=== PATIENT | female | born 2005 | race Caucasian/White ===

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

== ENCOUNTER → 2023-06-18 09:37 | Outpatient (POV) | payer OTHER, BC, SELFPAY | PROVIDERS: PCP Internal Medicine Adolescent Medicine; Visit Provider Dermatology | DX: Z00.00 Encounter for general adult medical examination without abnormal findings (principal) ==

== ENCOUNTER 2024-02-06 10:13 | Outpatient (CLI) | payer OTHER, BC, SELFPAY ==
[2024-02-06 12:12] LABS: Triiodothryronine (T3) Uptake 30 % (23.5-40.5)
[2024-02-06 12:26] LABS: Thyroid Stimulating Hormone 1.26 uIU/mL (0.465-4.68)
[2024-02-06 12:38] LABS: Free Thyroxine Index 2.5 ug/dL (5.93-13.13); T4 (Thyroxine) 8.3 ug/dl (5.53-11.0)
== END 2024-02-06 23:59 | disposition home or self-care (01) ==
LOC: LAB 10:16
PROVIDERS: PCP Nurse Practitioner Family; Visit Provider Nurse Practitioner Family
DX: R79.89 Other specified abnormal findings of blood chemistry (principal)
CPT/HCPCS: 36415; 84436; 84443; 84479

== ENCOUNTER 2025-04-15 15:16 | Outpatient (CLI) | payer OTHER, BC, SELFPAY ==
--- NOTE | 2025-04-15 | CA_ITS ---
APPROVED REPORT EXAM: Comprehensive 2D, Doppler, and color-flow Echocardiogram Assistant Import Manager: Kate Knight RT(R) Ht: 5 ft 8 in Wt: 145lbs BSA: 1.78 BP: 124/78 mmHg Indications: Bicuspid AV 2D Dimensions EF AP4 40.10 % GL Strain -11.6 % M-Mode Dimensions RVDd 2.66 cm (0.9-2.6) LA Diam 2.92 cm (1.9-4.0) LVDd 4.42 cm (3.5-5.7) LVDs 3.28 cm (3.5-5.7) IVSd 0.59 cm (0.6-1.1) PWd 0.46 cm (0.6-1.1) EF (Teich) 50.90% FS 25.80% EDV (Teich) 88.60 mL ESV (Teich) 43.50 mL LV Diastology E Decel Time 150 (160-240 msec) E/A Ratio 1.4 Aortic Valve CALUDIO Index 0.93 cm2/m2 AoV Peak Jase. 154.0 (50-130 cm/s) AO Peak GR. 9.50 mmHg AO Mean GR. 4.70 (<5 mmHg) AO VTI 29.4 (18-25 cm) CLAUDIO (VTI) 1.71 (2.5-4.5 cm2) Mitral Valve MV E Max Jase. 87.0 (40-130 cm/s) MV A Velocity 63.0 (40-130 cm/s) E/A Ratio 1.39 MV PHT 44.0 ms Left Ventricle The left ventricle is normal size. Left ventricular systolic function is normal. The left ventricular ejection fraction is within the normal range. There is normal left ventricular wall thickness. There is normal LV segmental wall motion. The left ventricular diastolic function is normal. LVEF is 55% Right Ventricle The right ventricle is normal size. The right ventricular systolic function is normal. Atria The left atrium size is normal. The right atrium size is normal. There is no color Doppler evidence of interatrial shunt. Aortic Valve The aortic valve is mildly thickened, possibly bicuspid AV is present. There is no hemodynamically significant aortic valvular stenosis. Trace aortic regurgitation is present. Mitral Valve The mitral valve is normal in structure. No evidence of mitral valve stenosis. Trace mitral regurgitation is present. Tricuspid Valve The tricuspid valve leaflets are thin and pliable. Trace tricuspid regurgitation. There is insufficient TR jet to estimate RVSP. Pulmonic Valve The pulmonary valve is grossly normal in structure. Trace pulmonic valve regurgitation is present. Great Vessels The aortic root is normal in size. IVC is normal in size and collapses >50% with inspiration. Pericardium There is no pericardial effusion. Other Information Study Quality: Fair Conclusion Normal biventricular systolic function. Aortic valve is mldly thickened, possibly bicuspid AV. No significant AI or . No other significant valvular stenosis or regurgitation. Electronically signed by : Giselle Monahan MD 04/19/2025 22:43:08
== END 2025-04-15 23:59 | disposition home or self-care (01) ==
LOC: RT 15:17
PROVIDERS: PCP Nurse Practitioner Family; Visit Provider Nurse Practitioner Family
DX: Q23.81 Bicuspid aortic valve (principal); R93.1 Abnormal findings on diagnostic imaging of heart and coronary circulation
CPT/HCPCS: 93306